=== PATIENT | female | born 1960 | race Caucasian/White ===

== ENCOUNTER 2019-12-28 08:50 | Emergency (ER) | payer OTHER ==
[~2019-12-28] VITALS: Ht 170.2 cm; Wt 94.8 kg
[2019-12-28 08:59] VITALS: BP 113/55; Ht 170.2 cm; Wt 94.8 kg
== END 2019-12-28 09:59 | disposition home or self-care (01) ==
LOC: ED 08:50
DX: S46.002A Unspecified injury of muscle(s) and tendon(s) of the rotator cuff of left shoulder, initial encounter (principal); W01.0XXA Fall on same level from slipping, tripping and stumbling without subsequent striking against object, initial encounter; Y92.524 Gas station as the place of occurrence of the external cause